=== PATIENT | male | born 1970 | race Caucasian/White ===

== ENCOUNTER → 2017-04-18 | Outpatient (CLI) | payer OTHER ==
--- NOTE | 2017-04-18 11:25 | XR ---
EXAM TYPE: LUMBAR SPINE X RAY SERIES COMPARISON: NONE HISTORY: Pain TECHNIQUE: 3 views are submitted. FINDINGS: Alignment is anatomic. The pedicles are intact. The transverse processes are intact. There is no s pondylolisthesis. Moderate to severe degenerative disc disease L4-L5. Mild hypertrophic changes. IMPRESSION: 1. Moderate degenerative disc disease L4-L5.
== END | disposition home or self-care (01) ==
LOC: RADXRMAIN 10:39
PROVIDERS: ATTEND Physician Assistant
DX: M51.36 Other intervertebral disc degeneration, lumbar region (principal)
CPT/HCPCS: 72100

== ENCOUNTER → 2017-05-01 | Outpatient (CLI) | payer OTHER | LOC: RADMRIMAIN 15:58 | PROVIDERS: ATTEND Physician Assistant | DX: Z53.9 Procedure and treatment not carried out, unspecified reason (principal) ==

== ENCOUNTER → 2017-08-04 | Outpatient (CLI) | payer OTHER | LOC: RADMRIMAIN 18:04 | PROVIDERS: ATTEND Family Medicine | DX: Z53.9 Procedure and treatment not carried out, unspecified reason (principal) ==

== ENCOUNTER 2020-08-07 12:20 | Emergency (ER) | payer OTHER ==
[2020-08-07 12:40] VITALS: BP 140/94; PULSE 62; RESP 18; TEMP 97.9
[2020-08-07] MEDS ORDERED: KETOROLAC 15 MG/ML 1 ML VIAL IM STA (13:14)
--- NOTE | 2020-08-07 13:29 | ED ---
Extremity Problem HPI - General Chief complaint: Extremity Problem,Nontraumatic Stated complaint: R shoulder pain Time Seen by Provider: 08/07/20 12:49 Source: patient Mode of arrival: ambulatory Limitations: no limitations - History of Present Illness Initial comments: Patient is a 50-year-old male presenting to emergency Department with complaints of right-sided posterior shoulder pain has been increasing over the past few weeks. Patient states there was no injury or trauma that started the pain. Patient has been off work for the last few weeks for holidays and states he woke up one morning noticing a little soreness in the posterior aspect of the right shoulder. States it is getting worse and he went to his PCP and they prescribed him Flexeril, he states it does not help with the pain. He has been trying ibuprofen as well. Patient states he's been dealing with it until today while he was at work, the pain intensified and so he wanted to be evaluated at the ER. Patient states the pain is still on the posterior aspect of the right shoulder blade, with some mild radiation into the back of the right arm. He states he does have at a computer all day at work. He denies previous surgeries or injuries of his right shoulder, he is having some mild right sided neck tightness as well. Denies history of fever, chills. Patient has no further complaints at this time. - Related Data Home Medications Medication Instructions Recorded Confirmed Fluticasone Nasal Quinlan [Flonase 2 spr EA NOSTRIL DAILY PRN 07/13/16 07/18/16 Nasal Quinlan] Previous Rx's Medication Instructions Recorded Docusate [Colace] 100 mg PO BID #30 capsule 07/18/16 HYDROcodone/APAP 7.5-325MG [[place] 1 each PO Q4H PRN #30 tab 07/18/16 7.5-325] Allergies Allergy/AdvReac Type Severity Reaction Status Date / Time No Known Allergies Allergy Verified 08/07/20 12:40 Review of Systems ROS Statement: Those systems with pertinent positive or pertinent negative responses have been documented in the HPI. ROS Other: All systems not noted in ROS Statement are negative. Past Medical History Past Medical History: No Reported History Additional Past Medical History / Comment(s): allergies History of Any Multi-Drug Resistant Organisms: None Reported Past Surgical History: Hernia Repair Additional Past Surgical History / Comment(s): colonoscopy Past Anesthesia/Blood Transfusion Reactions: No Reported Reaction Past Psychological History: No Psychological Hx Reported Smoking Status: Former smoker Past Alcohol Use History: Occasional Past Drug Use History: None Reported - Past Family History Father Brother(s) Family Medical History: Cancer Mother Family Medical History: Cancer General Exam - General Exam Comments Initial Comments: GENERAL: Patient is well-developed and well-nourished. Patient is nontoxic and in no acute distress. HEAD: Atraumatic, normocephalic. EYES: Pupils equal round and reactive to light, extraocular movements intact, sclera anicteric, conjunctiva are normal. Eyelids were unremarkable. ENT: TMs normal, nares patent, oropharynx clear without exudates. Moist mucous membr anes. NECK: Normal range of motion, supple without lymphadenopathy or JVD. LUNGS: Unlabored respirations. Breath sounds clear to auscultation bilaterally and equal. No wheezes rales or rhonchi. HEART: Regular rate and rhythm without murmurs, rubs or gallops. ABDOMEN: Soft, nontender, normoactive bowel sounds. No guarding, no rebound. No masses appreciated. : Deferred MUSCULOSKELETAL: He does have normal range of motion of the right shoulder, pain at the end range. He does have pain with palpation of the posterior right shoulder blade, right trapezius muscle. Normal extremities with adequate strength and normal range of motion, no pitting or edema. No clubbing or cyanosis. NEUROLOGICAL: Patient is alert and oriented x 3. Motor and sensory are also intact. Cranial nerves II through XII grossly intact. Symmetrical smile. Normal speech, normal gait. PSYCH: Normal mood, normal affect. SKIN: Warm, Dry, normal turgor, no rashes or lesions noted. Limitations: no limitations Course Vital Signs 08/07/20 12:36 Temperature 97.9 F Pulse Rate 62 Respiratory 18 Rate Blood Pressure 140/94 O2 Sat by Pulse 97 Oximetry Medical Decision Making - Medical Decision Making Patient is a 50-year-old male here with right-sided posterior shoulder pain but that increasing over the past 3 weeks. He did go to his PCP was prescribed Flexeril, and is not helping. He had increase in pain and today at work. X-ray shows no acute fractures dislocations. Patient's exam is consistent with muscle spasms of the right posterior shoulder. Give him Toradol today, I'll send him home with a sling to use as needed for increased discomfort. I will give him orthopedic referral. He is stable for discharge. Patient is in agreement with this plan of care. Disposition Clinical Impression: Right shoulder pain, Muscle spasm of right shoulder Disposition: HOME SELF-CARE Condition: Stable Instructions (If sedation given, give patient instructions): Shoulder Pain (ED) Additional Instructions: Please return to the Emergency Department if symptoms worsen or any other concerns. Continue with Flexeril in the evening for spasms. Continue with ibuprofen. Follow up with orthopedics as discussed as symptoms persist. Is patient prescribed a controlled substance at d/c from ED?: No Referrals: Katheryn Dunbar III, MD [Primary Care Provider] - 1-2 days Ahsan Elizondo MD [STAFF PHYSICIAN] - 1-2 days
--- NOTE | 2020-08-07 13:37 | XR ---
EXAMINATION TYPE: XR shoulder complete RT DATE OF EXAM: 08/07/2020 COMPARISON: None HISTORY: Pain TECHNIQUE: Three-view right shoulder FINDINGS: Humeral head articulates with the glenoid. Acromioclavicular junction is normal. No acute f ractures or dislocations are evident. IMPRESSION: 1. No acute osseous abnormality right shoulder
== END 2020-08-07 13:48 | disposition home or self-care (01) ==
LOC: EC 12:20
DX: M62.838 Other muscle spasm (principal); Z87.891 Personal history of nicotine dependence
CPT/HCPCS: 73030; 99283; 96372; J1885